=== PATIENT | male | born 1965 | race Caucasian/White ===

== ENCOUNTER 2024-02-11 12:58 | Outpatient (AMB) | payer OTHER, SELFPAY ==
--- NOTE | 2024-02-11 13:00 | MHC.OFFVIS ---
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 Patient reports his pain has been going on for about 2-3 months and is a 2 during the day on the 1-10 pain scale. He is using NSAID's for the pain with no relief. Reports loosing ROM when waking up in the morning, has trouble bending the knee, pain increases to 6 on 1-10 pain scale. Patient has noticed pain has worsened in the past 3 weeks, unable to play tennis. 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 Accompanied by: Self / Same As Patient Allergies No Known Allergies Allergy (Verified 02/11/24 13:02) Medication List - Last Reconciled 02/11/[address] MD albuterol sulfate 90 mcg/actuation 1 - 2 puffs inhalation Q6H PRN mometasone (Asmanex Twisthaler) 1 - 2 inhalations inhalation DAILY montelukast 10 mg PO QPM PFSH Social History (Updated 02/11/24 @ 13:03 by JULIO Hardy) Alcohol intake: current Alcohol intake frequency: a few times a month Alcohol type: beer Patient Tobacco Use Status: Former Tobacco user Current occupation: right handed Physical Exam Vital Signs: BMI result Body Mass Index 23.1 Const Other: Well-nourished well-developed very friendly male awake alert and oriented x3 in no acute distress Extrem Other: Bilateral lower extremity examination shows good capillary refill, no skin lesions noted, normal sensation light touch Left knee examination shows a minimal effusion, tenderness along his medial joint line and medial collateral ligament, mild discomfort with range of motion, minimal crepitus with range of motion, no instability Results Reviewed Results Reviewed: MRI report from [facility] of the patient's left knee shows mild diffuse degenerative changes as well as a grade 1 sprain of the medial collateral ligament, no obvious meniscus tearing Assessment & Plan Assessment & Plan (1) Left knee pain: Code(s): M25.562 - Pain in left knee Category: Medical Plan Mr. Mcclure presents with left knee pain most likely due to a healing grade 1 medial collateral ligament sprain. I had a lengthy discussion with the patient regarding the treatment options. If the patient's symptoms are due to a sprain of his medial collateral ligament his symptoms should continue to improve over the next few months. The patient could also have a small meniscus tear which was not appreciated on his MRI. I will see the patient back in 2 months' time for repeat clinical examination. He will continue with his activity modifications in the meantime. Feel free to call me at any time should questions regarding his orthopedic management arise. I spent 20 minutes in reviewing the patient's records and imaging studies, seeing the patient and documenting in the medical record. Coding Level of Care Code New Pt Level 2 (47067) Diagnoses Left knee pain M25.562
[2024-02-11 13:02] VITALS: BMI 23.1
== END 2024-02-11 13:28 | disposition home or self-care (01) ==
PROVIDERS: PCP Internal Medicine; Visit Provider Orthopaedic Surgery
DX: M25.562 Pain in left knee (principal)
CPT/HCPCS: 99202

== ENCOUNTER → 2024-02-11 12:58 | Outpatient (BNVA) | payer OTHER, SELFPAY | PROVIDERS: PCP Internal Medicine; Visit Provider Orthopaedic Surgery ==

== ENCOUNTER 2024-04-07 13:14 | Outpatient (AMB) | payer OTHER, SELFPAY ==
--- NOTE | 2024-04-07 13:18 | A.OFFVIS_ITS ---
Vital Signs 04/07/24 13:19 Height 6 ft Weight 170 lb BMI 23.1 Handedness Right Intake Visit Reasons: OV-Left knee pain-follow up Intake Note: Jhon is a 58 year old male who presents today for a follow up visit for left knee pain. Patient reports his pain has improved but continues, on a scale of 1- 10 he expresses occasionally every 2 or 3 days he will have a 2/3 pain. He has improved in ROM but when he has pain in the morning it is accompanied by limited ROM. Patient states Hx of lateral release surgery right knee in 1993. Allergies No Known Allergies Allergy (Verified 04/07/24 13:19) Medication List - Last Reconciled 04/07/[address] MD albuterol sulfate 90 mcg/actuation 1 - 2 puffs inhalation Q6H PRN mometasone (Asmanex Twisthaler) 1 - 2 inhalations inhalation DAILY montelukast 10 mg PO QPM PFSH Social History (Updated 04/07/24 @ 13:20 by TORIE Nelson) Alcohol intake: current Alcohol intake frequency: a few times a month Alcohol type: beer Patient Tobacco Use Status: Former Tobacco user Current occupational status: employed Current occupation: right handed / [employer] Physical Exam Vital Signs: BMI result Body Mass Index 23.1 Const Other: Well-nourished well-developed very friendly male awake alert and oriented x3 in no acute distress Extrem Other: Bilateral lower extremity examination shows good capillary refill, no skin lesions noted, normal sensation light touch Left knee examination shows a minimal effusion, mild tenderness over his medial collateral ligament and medial joint line, no instability Results Reviewed Results Reviewed: MRI report from [facility] of the patient's left knee shows mild diffuse degenerative changes as well as a grade 1 sprain of the medial collateral ligament, no obvious meniscus tearing Assessment & Plan Assessment & Plan (1) Left knee pain: Code(s): M25.562 - Pain in left knee Category: Medical Plan Mr. Mcclure presents with left knee pain most likely due to a healing medial collateral ligament injury. The patient will continue with his activity modifications. He will follow up with me on an as-needed basis should his symptoms not plateau at an unacceptable level over the next few months. Feel free to call me at any time should questions regarding his orthopedic management arise. I spent 20 minutes in reviewing the patient's records and imaging studies, seeing the patient and documenting in the medical record. Coding Level of Care Code Est Pt Level 3 (53488) Diagnoses Left knee pain M25.562
[2024-04-07 13:19] VITALS: BMI 23.1
== END 2024-04-07 13:43 | disposition home or self-care (01) ==
PROVIDERS: PCP Internal Medicine; Visit Provider Orthopaedic Surgery
DX: M25.562 Pain in left knee (principal)
CPT/HCPCS: 99213

== ENCOUNTER → 2024-04-07 13:14 | Outpatient (BNVA) | payer OTHER, SELFPAY | PROVIDERS: PCP Internal Medicine; Visit Provider Orthopaedic Surgery ==

== ENCOUNTER 2024-05-11 15:16 | Outpatient (AMB) | payer OTHER, SELFPAY ==
--- NOTE | 2024-05-11 15:20 | A.OFFVIS_ITS ---
Vital Signs 05/11/24 15:24 Height 6 ft Weight 170 lb BMI 23.1 Intake Visit Reasons: New Prob - Right Tennis Elbow Intake Note: Nona 58 year old right hand dominant male who presents today for an evaluation of right elbow. Patient reports elbow pain for the past 6-12 months. Denies injury. States that he does a lot repetitive motion at work and with playing tennis. Denies numbness or tingling. No previous tx. Allergies No Known Allergies Allergy (Verified 05/11/24 15:24) Medication List - Last Reconciled 05/11/24 by Joseph Sands PA-C albuterol sulfate 90 mcg/actuation 1 - 2 puffs inhalation Q6H PRN mometasone (Asmanex Twisthaler) 1 - 2 inhalations inhalation DAILY montelukast 10 mg PO QPM HPI HPI New Prob - Right Tennis Elbow: Details: Jhon is a 58-year-old right-hand dominant male who presents today for an evaluation of right tennis elbow pain. He claims to have had elbow pain for6 to 12 months. He denies any injury. He states that repeated movements while working and playing tennis makes the pain worse. He denies any previous treatment. He works at [employer]. [facility] Social History Alcohol intake: current Alcohol intake frequency: a few times a month Alcohol type: beer Patient Tobacco Use Status: Former Tobacco user Current occupational status: employed Current occupation: right handed / [employer] Review of Systems Const All systems reviewed & are unremarkable except as noted in HPI and below Physical Exam Vital Signs: BMI result Body Mass Index 23.1 Const General: cooperative, healthy appearing, comfortable and no acute distress Orientation/consciousness: patient oriented x3 Neck Neck: Yes normal visual inspection and Yes no JVD Chest Chest palpation & inspection: normal inspection of the chest Resp Effort & Inspection: normal respiratory effort Auscultation: clear to auscultation bilaterally, crackles (no), rales (no), rhonchi (no) and wheezes (no) Cardio Jugular venous distension: no JVD Rate: regular rate Rhythm: regular rhythm Heart sounds: S1 normal heart sound present, S2 normal heart sound present, Murmur heart sound present (no) and Rub heart sound present (no) Neuro General: patient oriented x3 Extrem Other: Right elbow: Skin intact. No erythema or swelling. ROM full without pain. Tenderness over the lateral epicondyle and pain with resisted wrist extension. NVI. General: Yes normal to inspection, Yes no pedal edema and Yes no calf tenderness Assessment & Plan Assessment & Plan (1) Lateral epicondylitis, right elbow: Code(s): M77.11 - Lateral epicondylitis, right elbow Category: Medical Plan Patient was given a handout of some home exercises and we discussed modification of activities and anti inflammatory use well. If symptoms persist or worse than he will contact our office, otherwise, f/u prn. Patient Instructions: Scribed for Joseph Sands PA-C, by Bhavana Rouse special forces medical sergeant, on 05/11/2024 at 3:15 PM EST. I, Joseph Sands PA-C, have personally reviewed and agree with the information entered by the scribe. Coding Level of Care Code New Pt Level 3 (80960) Diagnoses Lateral epicondylitis, right elbow M77.11
[2024-05-11 15:24] VITALS: BMI 23.1
== END 2024-05-11 16:20 | disposition home or self-care (01) ==
PROVIDERS: PCP Internal Medicine; Visit Provider Physician Assistant
DX: M77.11 Lateral epicondylitis, right elbow (principal)
CPT/HCPCS: 99213

== ENCOUNTER → 2024-05-11 15:16 | Outpatient (BNVA) | payer OTHER, SELFPAY | PROVIDERS: PCP Internal Medicine; Visit Provider Physician Assistant ==